=== PATIENT | female | born 1970 | race Caucasian/White ===

== ENCOUNTER 2021-12-15 11:10 | Observation (INO) ==
[2021-12-15] MEDS ORDERED: Aspirin 81 MG TAB.CHEW PO ONE (11:24)
[2021-12-15] MEDS ORDERED: Isovue-370 500 ML BOTTLE IVP ONE (11:24)
[2021-12-15] MEDS: Nitroglycerin 0.4 MG TAB.SUBL SL PRN ×2 (11:32→11:37)
[2021-12-15 11:48] LABS: Basophils # 0.1 K/mcL (0.0-0.2); Basophils % 0.9 %; Eosinophils # 0.2 K/mcL (0.0-0.6); Hematocrit 45.4 % (35.3-44.9); Hemoglobin 15.1 g/dL (11.5-15.4); Immature Granulocytes % 0.2 % (0-4); Lymphocytes # 3.1 K/mcL (0.6-4.6); Lymphocytes % 37.8 %; Mean Corpuscular HGB Conc 33.3 g/dL (31.6-35.5); Mean Corpuscular Hemoglobin 30.8 pg (28.0-33.3); Mean Corpuscular Volume 92.7 fL (83.0-100.0); Mean Platelet Volume 10.2 fL (9.4-12.4); Monocytes # 0.6 K/mcL (0.0-1.3); Monocytes % 7.6 %; Neutrophils # 4.2 K/mcL (1.6-8.9); Platelet Count 191 K/mcL (140-400); Segmented Neutrophils % 51.5 %; White Blood Count 8.1 K/mcL (4.3-11.1)
[2021-12-15 11:55] LABS: INR 1.1; Prothrombin Time 12.3 Seconds (9.4-12.1)
[2021-12-15 11:58] LABS: Activated Partial Thrombo Time 37.1 Seconds (26.0-36.0)
[2021-12-15 12:09] LABS: Alanine Aminotransferase 14 Units/L (7-52); Albumin 4.1 g/dL (3.5-5.7); Albumin/Globulin Ratio 1.4 (1.1-2.2); Alkaline Phosphatase 72 Units/L (34-104); Aspartate Amino Transferase 17 Units/L (13-39); BUN/Creatinine Ratio 16 (6-26); Bilirubin,Direct 0.1 mg/dL (0.0-0.2); Bilirubin,Indirect 0.5 mg/dL (0.0-1.0); Bilirubin,Total 0.6 mg/dL (0.3-1.0); Blood Urea Nitrogen 13 mg/dL (6-20); Calcium 9.8 mg/dL (8.6-10.3); Carbon Dioxide 24 mEq/L (23-29); Chloride 104 mEq/L (98-107); Globulin 2.9 g/dL (2.4-3.5); Glucose 95 mg/dL (70-105); Lipase 17 Units/L (11-82); Osmolality,Calculated 284 (280-300); Potassium 3.7 mEq/L (3.5-5.1); Sodium 137 mEq/L (136-145); Troponin I < 0.03 ng/mL (< 0.04); eGFR For African Americans > 60 (> 60); eGFR For Non-African Americans > 60 (> 60)
[2021-12-15 12:13] LABS: Platelet Estimate Normal (Normal); Reactive Lymphocytes Present (Not Present)
[2021-12-15] MEDS ORDERED: Naloxone 0.4 MG/ML INJ IVP PRN (14:37)
[2021-12-15] MEDS ORDERED: Ibuprofen 400 MG TABLET PO PRN (14:42)
[2021-12-15] MEDS: Budesonide/Formoterol 160/4.5 1 PUFF INH IH SCH (20:53)
[2021-12-15] MEDS ORDERED: Loratadine 10 MG TABLET PO SCH (21:00)
[2021-12-16 05:05] LABS: Basophils # 0.1 K/mcL (0.0-0.2); Eosinophils # 0.2 K/mcL (0.0-0.6); Eosinophils % 3.1 %; Hematocrit 45.8 % (35.3-44.9); Hemoglobin 15.1 g/dL (11.5-15.4); Immature Granulocytes % 0.2 % (0-4); Lymphocytes # 2.8 K/mcL (0.6-4.6); Lymphocytes % 45.7 %; Mean Corpuscular Hemoglobin 30.6 pg (28.0-33.3); Mean Corpuscular Volume 92.9 fL (83.0-100.0); Mean Platelet Volume 10.3 fL (9.4-12.4); Monocytes # 0.5 K/mcL (0.0-1.3); Monocytes % 8.1 %; Neutrophils # 2.6 K/mcL (1.6-8.9); Platelet Count 190 K/mcL (140-400); Red Blood Count 4.93 M/mcL (3.82-4.97); Segmented Neutrophils % 41.9 %; White Blood Count 6.1 K/mcL (4.3-11.1)
[2021-12-16 05:22] LABS: BUN/Creatinine Ratio 18 (6-26); Blood Urea Nitrogen 13 mg/dL (6-20); Calcium 9.6 mg/dL (8.6-10.3); Carbon Dioxide 26 mEq/L (23-29); Chloride 105 mEq/L (98-107); Glucose 91 mg/dL (70-105); Osmolality,Calculated 288 (280-300); Sodium 139 mEq/L (136-145); eGFR For African Americans > 60 (> 60); eGFR For Non-African Americans > 60 (> 60)
[2021-12-16 05:52] LABS: Platelet Estimate Normal (Normal); Reactive Lymphocytes Present (Not Present)
[2021-12-16] MEDS ORDERED: *HR* Enoxaparin 40 MG/0.4 ML SYRINGE SQ SCH (06:00)
[2021-12-16] MEDS ORDERED: Regadenoson 0.4 MG/5 ML SYRINGE IVP ONE (06:30)
[2021-12-16] MEDS: Budesonide/Formoterol 160/4.5 1 PUFF INH IH SCH (08:20)
[2021-12-16 10:48] VITALS: BP 148/77; PULSE 58; TEMP 97.8; O2SAT 96
== END 2021-12-16 12:34 | disposition home or self-care (01) ==
LOC: 3BNU 11:10 → EMEROOARM 11:10 → 3BNU 14:42
PROVIDERS: ADMIT Internal Medicine; ATTEND Internal Medicine